=== PATIENT | male | born 1970 | race Caucasian/White ===

== ENCOUNTER 2019-10-22 18:58 | Emergency (ER) | payer OTHER, SELFPAY ==
--- NOTE | 2019-10-22 19:05 | ED.EXTPRO ---
HPI - Extremity Problem General Chief complaint: Extremity Problem,Nontraumatic Stated complaint: states fluid in left arm and inflamation Time Seen by Provider: 10/22/19 19:02 Source: patient and family Mode of arrival: Ambulatory Limitations: no limitations History of Present Illness HPI Narrative: 48-year-old male nonsmoker with history of arthritis presents with his significant other in the chief complaint of painless swelling of his left upper extremity. He states that over the past day or 2 he has had increasing swelling from the shoulder to his elbow and a bit of fullness in his biceps but no actual pain. He denies any redness or warmth nor any fever or chills. He denies any history of the same though he does state that years ago he had an exacerbation of arthritis in his knee that was somewhat similar. He states that he was working out rather heavy with his upper extremities a few days ago but doesn't recall any significant event or pain. He denies any chest pain or shortness of breath. He is not dizzy nor weak or lightheaded. He denies any diaphoresis, nausea or vomiting. He has full, painless range of motion. 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 about 2 weeks ago in his left antecubital fossa and points at an existing, but healing bruise Complaint: extremity swelling Onset (ago): day(s) Pain Consistency: now resolved Location: left Quality: aching Radiation: none Relieving factors: nothing Exacerbating factors: nothing Associated symptoms: denies other symptoms Related Data Home Medications Medication Instructions Recorded Confirmed etanercept 50 mg/mL (1 mL) 50 mg SUBCUT QWEEK 08/19/18 08/19/18 subcutaneous syringe Allergies Allergy/AdvReac Type Severity Reaction Status Date / Time No Known Drug Allergies Allergy Verified 08/19/18 15:13 Review of Systems Constitutional Constitutional: Denies chills, Denies fatigue, Denies fever(s), Denies frequent falls, Denies lethargy and Denies weakness Eyes Eyes: Denies change in vision, Denies eye discharge, Denies irritation and Denies loss of vision ENT Ears, Nose, Mouth, and Throat: Denies change in voice, Denies dizziness, Denies neck pain, Denies sore throat and Denies throat swelling Cardiovascular Cardiovascular: Denies chest pain, Denies irregular heart rhythm, Denies lightheadedness, Denies palpitations, Denies dyspnea, Denies dyspnea on exertion and Denies orthopnea Respiratory Respiratory: Denies cough, Denies dyspnea, Denies dyspnea on exertion and Denies wheezing Gastrointestinal Gastrointestinal: Denies abdominal pain, Denies change in bowel habits, Denies diarrhea, Denies nausea and Denies vomiting Genitourinary Genitourinary: Denies hematuria, Denies flank pain, Denies urinary incontinence and Denies urinary urgency Musculoskeletal Musculoskeletal: Denies back pain, Reports joint swelling, Denies muscle weakness, Denies neck pain, Denies numbness and Denies tingling Integumentary/Breasts Skin/Breast: Denies pruritus, Denies erythema, Denies rash and Denies wounds Neurologic Neurologic: Denies behavioral changes, Denies confusion, Denies dizziness, Denies frequent falls, Denies loss of vision, Denies numbness, Denies tingling and Denies weakness Psychiatric Psychiatric: Denies anxiety, Denies behavioral changes, Denies confusion, Denies depression, Denies homicidal ideation and Denies suicidal ideation Endocrine Endocrine: Denies fatigue, Denies flushing and Denies palpitations Hematologic/Lymphatic Hematologic/Lymphatic: Denies easy bruising Allergic/Immunologic Allergic/Immunologic: Denies urticaria, Denies throat swelling and Denies wheezing Patient History Medical History (Updated 10/22/19 @ 21:36 by Damir Kemp DO) Psoriasis (Chronic ~1974) Psoriatic arthritis (Chronic ~1989) Surgical History (Updated 08/19/18 @ 13:59 by Miracle Mayo) Anesthesia (Resolved) History of vasectomy (Resolved 08/2008) Family History (Updated 08/19/18 @ 14:05 by Miracle Mayo) Mother Age: 75 Breast cancer Melanoma Grandfather Prostate cancer Grandmother Mental health problem Sister Age: 49 Breast cancer Brother No problems noted. Father Thyroid disease Grandfather No problems noted. Grandmother No problems noted. Sister No problems noted. Social History marital status: Smoking Status: Former smoker (QUIT IN 1996) alcohol intake: current (5-6 A WEEK ) substance use type: does not use Smoking Status: Former smoker (QUIT IN 1996) Exam Narrative Exam Narrative: GENERAL: [48] year old patient appears stated age. Well-nourished, well-developed patient, in mild distress. HEAD: Atraumatic. Normocephalic. EYES: Pupils equal round and reactive. Extraocular motions intact. No scleral icterus. No injection or drainage. ENT: Nose without bleeding, purulent drainage. Throat without erythema, tonsillar hypertrophy or exudate. Airway patent. NECK: Trachea midline. Non tender CARDIOVASCULAR: Regular rate and rhythm without murmurs, gallops, or rubs. RESPIRATORY: Clear to auscultation. Breath sounds equal bilaterally. No wheezes, rales, or rhonchi. GASTROINTESTINAL: Abdomen soft, non-tender, nondistended. EXTREMITIES: Swelling of left upper extremity from shoulder to elbow. No redness, warmth or tenderness. Full, painless range of motion, no numbness or tingling. Evidence of blood draw in left AC BACK: Nontender without deformity or crepitance. No flank tenderness. NEURO: AOx3. SKIN: No rash or erythema of visible areas Initial Vital Signs Initial Vital Signs: Vital Signs Pulse Rate 65 10/22/19 19:08 Respiratory Rate 16 10/22/19 19:08 Blood Pressure 174/82 H 10/22/19 19:08 Pulse Oximetry 98 10/22/19 19:08 Course Orders Ordered: ED Orders 10/22/19 19:16 US periph venous up extrem lt Stat 10/22/19 19:30 Basic Metabolic Panel Stat C-Reactive Protein Quant Stat Complete Blood Count AUTO DIFF Stat Erythrocyte Sedimentation Rate Stat Vital Signs Vital signs: Vital Signs - 8 hr 10/22/19 19:08 10/22/19 21:28 Pulse Rate 65 85 Respiratory Rate 16 16 Blood Pressure 174/82 H Blood Pressure [Left Arm] 123/71 Pulse Oximetry 98 97 MDM - Extremity (Nontraumatic) Lab Data Result diagrams: 10/22/19 19:30 10/22/19 19:30 Labs: Lab Results 10/22/19 10/22/19 Range/Units 19:30 19:30 WBC 8.5 (4.5-11.0) X10^3/uL RBC 4.92 (4.5-5.9) X10^6/uL Hgb 15.4 (13.5-17.5) g/dL Hct 44.3 (41-53) % MCV 90.0 (80-100) fL MCH 31.2 (26-34) PG MCHC 34.7 (30-36) % RDW 13.7 (11.6-14.8) % Plt Count 226 (150-400) X10^3/uL Neut % (Auto) 46.1 L (50-75) % Lymph % (Auto) 43.7 H (25-40) % [place] % (Auto) 7.5 (3-14) % Eos % (Auto) 2.3 (2-4) % Baso % (Auto) 0.4 (0-2) % Neut # (Auto) 3900 (0763-6021) /uL Lymph # (Auto) 3700 (8878-8606) /uL [place] # (Auto) 600 (0-900) /uL Eos # (Auto) 200 (0-450) /uL Baso # (Auto) 0 (0-100) /uL ESR 4 (0-15) MM/HR Sodium 139 (137-145) mmol/L Potassium 3.9 (3.4-5.1) mmol/L Chloride 102 (98-107) mmol/L Carbon Dioxide 31 (22-32) mmol/L BUN 20 (9-20) mg/dL Creatinine 1.00 (0.66-1.25) mg/dL Estimated GFR > 60.0 (>60) mL/min BUN/Creatinine Ratio 20.0 (6-22) Glucose 119 H (70-100) mg/dL Calcium 9.3 (8.4-10.2) mg/dL C-Reactive Protein 0.5 (<1.0) mg/dL Imaging Data US - DVT: Radiologist's Impression: [address] [address] Ultrasound Report Signed Patient: Jeancarlos Macias TMR#: [id number] : 1970Acct:[id number] Age/Sex: 48 / MDate of Service: 10/22/19 Loc: ED Accession Number: [id number] Procedure: US periph venous up extrem lt Ordering Provider: Damir Kemp D.O. PROCEDURE: US PERIPH VENOUS UP EXTREM LT INDICATIONS: PAIN, SWELLING LUE, RECENT BLOOD DRAW, NO INJURY TECHNIQUE: Real-time imaging, as well as color and pulse Doppler interrogation, was performed of the left upper extremity deep veins from the inferior neck to the antecubital fossa. COMPARISON: None. FINDINGS: The internal jugular vein, visualized portions of the subclavian vein, axillary, and brachial veins are free of intraluminal thrombus. Where physically possible, the veins are normally compressible. Color and pulse Doppler demonstrate normal intraluminal flow, with expected phasicity and pulsatility. Additional scanning of the cephalic and basilic veins of the superficial system demonstrate normal compressibility, without thrombus. IMPRESSION: No evidence of deep vein thrombosis involving the left upper extremity. Dictated by: Rubi Middleton MD, PhD on 10/22/2019 at 20:50 Approved by: Rubi Middleton MD, PhD on 10/22/2019 at 20:51 [facility] Narrative Medical decision making narrative: Multiple etiologies for patient's symptoms considered including: [Orthopedic injury versus DVT versus cellulitis versus other] Patient's symptoms improved or duration of stay with above-stated therapies. Findings and discharge diagnosis discussed with patient/family followed by verbalization of understanding Return precautions discussed with patient/family whom verbalize understanding. Discharge Plan Departure Patient Disposition: Home Clinical Impression: Edema of upper extremity Discharge Date/Time: 10/22/19 21:44 Instructions: DI for Peripheral Edema, Unilateral Activity Restrictions/Additional Instructions: *You have been diagnosed with [Left Upper Extremity Edema. Ultrasound demonstrates no clot. Infection and injury also considered. ] *What to do: *Take medications as directed *Follow up with your primary care provider in 2-3 days, call for an appointment. Let them know you were seen in the Emergency Department and that we ask that you be seen in follow up *Return to ER if you should have any new, worsening or concerning symptoms such as worsening pain, redness, fever or other bothersome symptoms Prescriptions: No Action etanercept [Enbrel] 50 mg/mL (0.98 mL) syringe 50 mg SUBCUT QWEEK RF: 0 Referrals: Papo Tesfaye MD [Primary Care Provider] -
[2019-10-22 19:08] VITALS: BP 174/82; PULSE 65; RESP 16; O2SAT 98
--- NOTE | 2019-10-22 19:16 | DI.US.S_ITS ---
PROCEDURE: US PERIPH VENOUS UP EXTREM LT INDICATIONS: PAIN, SWELLING LUE, RECENT BLOOD DRAW, NO INJURY TECHNIQUE: Real-time imaging, as well as color and pulse Doppler interrogation, was performed of the left upper extremity deep veins from the inferior neck to the antecubital fossa. COMPARISON: None. FINDINGS: The internal jugular vein, visualized portions of the subclavian vein, axillary, and brachial veins are free of intraluminal thrombus. Where physically possible, the veins are normally compressible. Color and pulse Doppler demonstrate normal intraluminal flow, with expected phasicity and pulsatility. Additional scanning of the cephalic and basilic veins of the superficial system demonstrate normal compressibility, without thrombus. IMPRESSION: No evidence of deep vein thrombosis involving the left upper extremity. Dictated by: Rubi Middleton MD, PhD on 10/22/2019 at 20:50 Approved by: Rubi Middleton MD, PhD on 10/22/2019 at 20:51
[2019-10-22 20:01] LABS: Add Manual Diff / Slide Review NO; Basophils Absolute Auto 0 /uL (0-100); Basophils Percent Auto 0.4 % (0-2); Eosinophils Absolute Auto 200 /uL (0-450); Eosinophils Percent Auto 2.3 % (2-4); Hematocrit 44.3 % (41-53); Hemoglobin 15.4 g/dL (13.5-17.5); Lymphocytes Absolute Auto 3700 /uL (1100-4500); Lymphocytes Percent Auto 43.7 % (25-40); Mean Corpuscular HGB Conc 34.7 % (30-36); Mean Corpuscular Hemoglobin 31.2 PG (26-34); Monocytes Absolute Auto 600 /uL (0-900); Monocytes Percent Auto 7.5 % (3-14); Neutrophils Absolute Auto 3900 /uL (1500-7000); Neutrophils Percent Auto 46.1 % (50-75); Platelet Count 226 X10^3/uL (150-400); Red Blood Cell Count 4.92 X10^6/uL (4.5-5.9); Red Cell Distribution Width 13.7 % (11.6-14.8); White Blood Cell Count 8.5 X10^3/uL (4.5-11.0)
[2019-10-22 20:08] LABS: Blood Urea Nitrogen 20 mg/dL (9-20); C-Reactive Protein Quant 0.5 mg/dL (<1.0); Calcium 9.3 mg/dL (8.4-10.2); Carbon Dioxide 31 mmol/L (22-32); Chloride 102 mmol/L (98-107); Estimated Glomerular Filt Rate > 60.0 mL/min (>60); Glucose 119 mg/dL (70-100); HEMOLYSIS < 15 (0-50); Potassium 3.9 mmol/L (3.4-5.1); Sodium 139 mmol/L (137-145)
[2019-10-22 20:30] LABS: Erythrocyte Sedimentation Rate 4 MM/HR (0-15)
[2019-10-22 21:28] VITALS: BP 123/71; PULSE 85; RESP 16; O2SAT 97
== END 2019-10-22 21:44 | disposition home or self-care (01) ==
PROVIDERS: Emergency Provider Emergency Medicine; Family Provider Internal Medicine; PCP Family Medicine
DX: R60.0 Localized edema (principal)
CPT/HCPCS: 36415; 80048; 85025; 85651; 86140; 93971; 99283; 99284

== ENCOUNTER → 2019-10-24 10:39 | Outpatient (CLI) | payer OTHER, SELFPAY ==
--- NOTE | 2019-10-24 11:44 | DI.CT.S_ITS ---
PROCEDURE: CT ANGIO UE LT INDICATIONS: Left upper ext swelling TECHNIQUE: After the administration of intravenous contrast, 2.5 mm sections acquired from the aortic arch through the symptomatic arm, with optional delayed image acquisition from the elbows to the fingers. 3-dimensional maximum intensity projection (MIP) coronal and sagital reformats, and/or 3-dimensional volume rendering reformatting was then performed. For radiation dose reduction, the following was used: automated exposure control. COMPARISON: [facility], , [facility] VENOUS UP EXTREM LT, 10/22/2019, 19:34. FINDINGS: Image quality: Excellent. Thoracic aorta: Patent, without dissection or aneurysm. Great vessels: Patent, without dissection or visualized aneurysm. Upper extremity: The left upper extremity was evaluated during CT scanning in both arterial and then delayed venous phase of contrast enhancement. No arterial dissection is found, or arterial embolus. No mass lesion impinging on the vasculature is found. In during the venous phase of contrast enhancement no DVT was seen. Extravascular tissues: Edema in the fatty soft tissues adjacent to the arterial and venous structures through the axilla and more prominently and circumferentially involving the lower arm and forearm regions is present. Etiology is uncertain. IMPRESSION: By CT scanning in arterial or venous phases of contrast enhancement in the etiology of current concern for vascular insufficiency is not found. Soft tissue edema is present as discussed most prominent distally. No adenopathy or abscess is seen. Please note that higher resolution imaging is available through catheter arteriography and venography. Acute thrombus within the vessels is generally elevated when compared to chronic thrombus (75-95 Hounsfield units versus approximately 50 Hounsfield units). The venous return during delayed imaging was measured, yielding a 132 Hounsfield unit radiodensity. Therefore, even an acute clot within the venous structures of the right subclavian and right upper extremity veins would be expected to be visible. Dictated by: Grady Velazquez M.D. on 10/24/2019 at 11:37 Approved by: Grady Velazquez M.D. on 10/24/2019 at 11:57
== END ==
PROVIDERS: Family Provider Internal Medicine; PCP Family Medicine; Visit Provider Family Medicine
DX: R60.0 Localized edema (principal)
CPT/HCPCS: 73206; Q9967

== ENCOUNTER → 2021-01-10 16:37 | Outpatient (CLI) | payer OTHER, SELFPAY ==
[2021-01-10 17:17] LABS: COVID19 -Nasal RAPID Negative (Negative)
== END ==
PROVIDERS: Family Provider Internal Medicine; PCP Family Medicine; Visit Provider Family Medicine
DX: Z20.822 Contact with and (suspected) exposure to COVID-19 (principal); R51.9 Headache, unspecified
CPT/HCPCS: 87635

== ENCOUNTER → 2021-05-05 07:03 | Outpatient (CLI) | payer OTHER, SELFPAY ==
[2021-05-05 08:40] LABS: Add Manual Diff / Slide Review NO; Basophils Absolute Auto 0 /uL (0-100); Basophils Percent Auto 0.5 % (0-2); Eosinophils Absolute Auto 100 /uL (0-450); Eosinophils Percent Auto 1.9 % (2-4); Hematocrit 45.4 % (41-53); Hemoglobin 15.3 g/dL (13.5-17.5); Lymphocytes Absolute Auto 3300 /uL (1100-4500); Lymphocytes Percent Auto 55.5 % (25-40); Mean Corpuscular HGB Conc 33.7 % (30-36); Mean Corpuscular Hemoglobin 30.4 PG (26-34); Mean Corpuscular Volume 90.3 fL (80-100); Monocytes Absolute Auto 500 /uL (0-900); Monocytes Percent Auto 8.8 % (3-14); Neutrophils Absolute Auto 2000 /uL (1500-7000); Neutrophils Percent Auto 33.3 % (50-75); Platelet Count 215 X10^3/uL (150-400); Red Blood Cell Count 5.03 X10^6/uL (4.5-5.9); Red Cell Distribution Width 13.4 % (11.6-14.8)
[2021-05-05 09:11] LABS: Erythrocyte Sedimentation Rate 3 MM/HR (0-15)
[2021-05-05 09:29] LABS: Alanine Aminotransferase 26 IU/L (<50); Albumin 4.1 g/dL (3.5-5.0); Albumin Globulin Ratio 1.5 (1.0-2.8); Alkaline Phosphatase 47 U/L (38-126); Aspartate Aminotransferase 26 IU/L (17-59); BUN Creatinine Ratio 15.6 (6-22); Bilirubin Total 0.7 mg/dL (0.2-1.3); Blood Urea Nitrogen 15 mg/dL (9-20); Calcium 9.3 mg/dL (8.4-10.2); Carbon Dioxide 26 mmol/L (22-32); Chloride 105 mmol/L (98-107); Cholesterol 186 mg/dL (140-199); Estimated Glomerular Filt Rate > 60.0 mL/min (>60); Globulin 2.7 g/dL (1.7-4.1); Glucose 97 mg/dL (70-100); HDL Cholesterol 78 mg/dL (40-60); HEMOLYSIS < 15 (0-50); LDL Cholesterol Calculated 96 mg/dL (<100); Potassium 4.3 mmol/L (3.4-5.1); Sodium 138 mmol/L (137-145); Total Protein 6.8 g/dL (6.3-8.2); Triglycerides 59 mg/dL (35-150)
[2021-05-05 09:59] LABS: TSH w/ Reflex to FT4 3.97 uIU/mL (0.47-4.68)
[2021-05-05 10:16] LABS: C-Reactive Protein Quant < 0.5 mg/dL (<1.0)
[2021-05-07 17:23] LABS: ANA Screen, IFA Negative (.)
== END ==
PROVIDERS: Family Provider Internal Medicine; PCP Family Medicine; Referring Provider Family Medicine; Visit Provider Family Medicine
DX: D84.821 Immunodeficiency due to drugs (principal); L04.8 Acute lymphadenitis of other sites; R53.1 Weakness; Z79.899 Other long term (current) drug therapy
CPT/HCPCS: 36415; 80053; 80061; 84443; 85025; 85651; 86038; 86140

== ENCOUNTER → 2021-08-03 07:55 | Outpatient (CLI) | payer OTHER, SELFPAY ==
[2021-08-03 09:15] LABS: Add Manual Diff / Slide Review NO; Basophils Absolute Auto 0 /uL (0-100); Basophils Percent Auto 0.5 % (0-2); Eosinophils Absolute Auto 100 /uL (0-450); Eosinophils Percent Auto 2.4 % (2-4); Hematocrit 44.8 % (41-53); Hemoglobin 15.1 g/dL (13.5-17.5); Lymphocytes Absolute Auto 2300 /uL (1100-4500); Lymphocytes Percent Auto 45.6 % (25-40); Mean Corpuscular HGB Conc 33.8 % (30-36); Mean Corpuscular Hemoglobin 30.2 PG (26-34); Mean Corpuscular Volume 89.4 fL (80-100); Monocytes Absolute Auto 400 /uL (0-900); Monocytes Percent Auto 8.1 % (3-14); Neutrophils Absolute Auto 2200 /uL (1500-7000); Neutrophils Percent Auto 43.4 % (50-75); Platelet Count 221 X10^3/uL (150-400); Red Blood Cell Count 5.01 X10^6/uL (4.5-5.9); Red Cell Distribution Width 13.7 % (11.6-14.8); White Blood Cell Count 5.1 X10^3/uL (4.5-11.0)
[2021-08-03 09:20] LABS: BUN Creatinine Ratio 16.7 (6-22); Blood Urea Nitrogen 15 mg/dL (9-20); Calcium 9.6 mg/dL (8.4-10.2); Carbon Dioxide 30 mmol/L (22-32); Chloride 102 mmol/L (98-107); Estimated Glomerular Filt Rate > 60.0 mL/min (>60); Glucose 98 mg/dL (70-100); HEMOLYSIS < 15 (0-50); Potassium 4.6 mmol/L (3.4-5.1); Sodium 139 mmol/L (137-145)
[2021-08-03 09:36] LABS: Vitamin D 25 Hydroxy (D3) 25.3 ng/mL (30.0-100.0)
[2021-08-03 09:51] LABS: Thyroid Stimulating Hormone 3.07 uIU/mL (0.47-4.68)
[2021-08-03 09:53] LABS: Testosterone 696 ng/dL (71.8-623)
[2021-08-03 10:10] LABS: Vitamin B12 259 pg/mL (239-931)
== END ==
PROVIDERS: Family Provider Internal Medicine; PCP Family Medicine; Referring Provider Physician Assistant; Visit Provider Physician Assistant
DX: D84.821 Immunodeficiency due to drugs (principal); L40.8 Other psoriasis; R53.83 Other fatigue; Z79.899 Other long term (current) drug therapy
CPT/HCPCS: 36415; 80048; 82306; 82607; 84403; 84443; 85025

== ENCOUNTER → 2021-08-04 08:46 | Outpatient (CLI) | payer OTHER, SELFPAY ==
[2021-08-04 09:48] LABS: Prostate Specific Antigen Scrn 0.913 ng/mL (0.1-4.0)
== END ==
PROVIDERS: Family Provider Internal Medicine; PCP Family Medicine; Visit Provider Physician Assistant
DX: Z12.5 Encounter for screening for malignant neoplasm of prostate (principal)
CPT/HCPCS: G0103